=== PATIENT | male | born 1970 | race Caucasian/White ===

== ENCOUNTER 2017-07-06 00:56 | Emergency (ER) | payer SELFPAY ==
[~2017-07-06] VITALS: Ht 190.5 cm; Wt 98.1 kg
[2017-07-06 02:08] LABS: HEMATOCRIT 48.5 % (38.0-50.0); MCH 29.5 PG (29.0-34.0); MCV 86.8 FL (86-99); MEAN PLAT.VOLUME 9.4 uM^3 (9.0-12.4); PLATELET COUNT 202 K/uL (156-360); RBC DIS.WIDTH-CV 11.9 % (11.8-14.6); RBC DIS.WIDTH-SD 37.9 % (39-53); RED BLOOD COUNT 5.59 M/uL (4.00-5.50); WHITE BLOOD COUNT 13.7 K/uL (4.1-10.2)
[2017-07-06 02:19] LABS: CHLORIDE 104 mEq/L (99-109); POTASSIUM 3.8 mEq/L (3.7-5.4)
[2017-07-06 02:20] LABS: SODIUM 139 mEq/L (136-147)
[2017-07-06 02:22] LABS: GLUCOSE 114 mg/dL (70-99)
[2017-07-06 02:23] LABS: ANION GAP 14 MEQ/L (2-14)
[2017-07-06 02:23] LABS: ADD MIUA? YES; BILIRUBIN NEGATIVE; BLOOD LARGE; COLOR YELLOW ((YELLOW)); GLUCOSE (STRIP) NEGATIVE; KETONES NEGATIVE; LEUKOCYTES NEGATIVE; NITRITE NEGATIVE; PROTEIN (STRIP) 30; SPECIFIC GRAVITY 1.025 (1.000-1.030); UROBILINOGEN 0.2 MG/DL (0.2-1.0)
[2017-07-06 02:24] LABS: TOTAL BILIRUBIN 0.9 mg/dL (0.0-1.0)
[2017-07-06 02:25] LABS: ALKALINE PHOSPHATASE 66 IU/L (3-129); GFR ESTIMATE (CALCULATED) > 59 mL/min/
[2017-07-06 02:27] LABS: UREA NITROGEN (BUN) 24 mg/dL (9-23)
[2017-07-06 02:28] LABS: BACTERIA NONE SEEN /HPF; CALCIUM OXALATE CRYSTALS 2+ /HPF; EPITHELIAL CELLS NONE SEEN /HPF; MUCUS TRACE /LPF; RED BLOOD CELLS 40-50 /HPF (0-5); UCUL ADDED? NO; WHITE BLOOD CELLS 0-5 /HPF (0-5)
[2017-07-06 02:29] LABS: LIPASE 21 U/L (1.0-51.0)
[2017-07-06 02:44] VITALS: BP 128/74
== END 2017-07-06 02:44 | disposition home or self-care (01) ==
LOC: EME 00:56 → EXP 00:56
PROVIDERS: Physician Assistant
DX: R10.31 Right lower quadrant pain (principal); M54.5 Low back pain; R31.9 Hematuria, unspecified
CPT/HCPCS: 74176; 80053; 81003; 83690; 85027; 99281; 99283